=== PATIENT | male | born 1970 | race Caucasian/White ===

== ENCOUNTER 2021-07-13 19:20 | Emergency (ER) | payer SELFPAY ==
[~2021-07-13] VITALS: Ht 185.4 cm; Wt 81.6 kg
[2021-07-13 19:20] VITALS: BP 156/102
--- NOTE | 2021-07-13 19:25 | NUR ---
PT DANIEL ALS. TAKEN TO BED 8
--- NOTE | 2021-07-13 19:47 | NUR ---
51 YO/M BIBA FROM THE STREETS FOR ALOC. PT PRESENTS AWAKE AND ALERT, PERRL, AMBULATORY W STEADY GAIT, CONTINUOUSLY FALLING ASLEEP AND AROUSABLE TO VOICE, PT REPORTS USING USING COCAINE, HEROINE, ALCOHOL. PT DENIES ANY PAIN. PT ASSESSMNET IS LIMITED D/T PATIENT CONTINUOSLY FALLING ASLEEP. VSS. PT LAYING IN BED LOCKED IN LOWEST POSITION W X2 SIDERAILS UP FOR SAFETY. PMH: UNABLE TO OBTAIN ALLERGIES: UNABLE TO OBATIN
--- NOTE | 2021-07-13 19:48 | NUR ---
Dr. Blanchard examining patient.
[2021-07-13 20:13] LABS: BASOPHILS % (AUTO) 0.6 % (0.0-2.0); EOSINOPHILS # (AUTO) 0.2 K/uL (0-0.4); EOSINOPHILS % (AUTO) 3.4 % (0.0-4.0); HEMATOCRIT 32.5 % (36-52); HEMOGLOBIN 10.8 g/dL (12.0-18.0); LYMPHOCYTES # (AUTO) 1.8 K/uL (2.0-11.5); LYMPHOCYTES % (AUTO) 32.5 % (20.5-51.1); MEAN CORPUSCULAR HEMOGLOBIN 31 pg (27-31); MEAN CORPUSCULAR HGB CONC 33 g/dL (33-37); MEAN CORPUSCULAR VOLUME 94.2 fL (80-94); MONOCYTES # (AUTO) 0.5 K/uL (0.8-1.0); MONOCYTES % (AUTO) 9.3 % (1.7-9.3); NEUTROPHILS # (AUTO) 3.1 K/uL (1.8-7.7); NEUTROPHILS % (AUTO) 54.2 % (42.2-75.2); PLATELET COUNT (AUTO) 265 K/uL (140-450); RED BLOOD CELL COUNT(AUTO) 3.46 MIL/uL (4.20-6.10); RED CELL DISTRIBUTION WIDTH 15.8 % (11.6-13.7); WHITE BLOOD COUNT (AUTO) 5.7 K/uL (4.8-10.8)
[2021-07-13 20:34] LABS: ALBUMIN 3.1 g/dL (3.4-5.0); ANION GAP 6.9 (8-16); ASPARTATE AMINOTRANSFERASE 30 U/L (15-37); CARBON DIOXIDE 31.2 mmol/L (21-32); CHLORIDE 105 mmol/L (98-107); CREATININE 0.9 mg/dL (0.6-1.3); GFR ARICAN-AMERICAN 115 mL/min (>90); GLUCOSE 117 mg/dL (74-106); POTASSIUM 4.1 mmol/L (3.5-5.1); SODIUM SERUM 139 mmol/L (136-145); TOTAL BILIRUBIN 0.3 mg/dL (0.0-1.0); UREA NITROGEN, BLOOD 28 mg/dL (7-18)
[2021-07-13 20:38] LABS: SALICYLATE < 2.8 mg/dL (2.8-20.0)
[2021-07-13 20:39] LABS: ACETAMINOPHEN < 0.5 ug/ml (10-30)
--- NOTE | 2021-07-13 23:26 | NUR ---
PT APPEARS TO BE RESTING W EYES CLOSED IN R LATERAL POSITION W X2 SIDERAILS UP FOR PT SAFETY. BREATHING EVEN AND UNLABORED. VSS. PT UP FOR DISCHARGE PER ERMD TO WAIT FOR PT TO BE MORE AWAKE AND ALERT.
--- NOTE | 2021-07-14 01:42 | NUR ---
PT APPEARS TO BE RESTING W EYES CLOSED IN L LATERAL POSITION W X2 SIDERAILS UP FOR PT SAFETY. BREATHING EVEN AND UNLABORED. VSS.
--- NOTE | 2021-07-14 03:19 | NUR ---
patient awake and alert w vss, ambulatory w steady gait.
[2021-07-14 03:21] VITALS: BP 148/98
--- NOTE | 2021-07-14 03:21 | NUR ---
Patient discharged with v/s stable. Written and verbal after care instructions given and explained. Patient verbalized understanding. Ambulatory with steady gait. All questions addressed prior to discharge. Advised to follow up with PMD. Provided w food and bus pass.
== END 2021-07-14 03:12 | disposition home or self-care (01) ==
LOC: MED 19:20
DX: R41.82 Altered mental status, unspecified (principal); F11.129 Opioid abuse with intoxication, unspecified; F15.129 Other stimulant abuse with intoxication, unspecified; Z72.89 Other problems related to lifestyle
CPT/HCPCS: 36415; 80053; 85025; 99285; G0480; G0482